=== PATIENT | female | born 1965 | race Two or more races ===

== ENCOUNTER 2021-02-22 21:16 | Inpatient (IN) | payer MEDICAID, OTHER ==
[~2021-02-22] VITALS: Ht 160 cm; Wt 62.6 kg
--- NOTE | 2021-02-22 21:20 | NUR ---
PT AAOX4. [id number] FROM HOME C/O SOB LOW O2 SAT 85% RA. COVID+ [id number]. PLACED IN BED 5 ON FIELD ADVISOR AND PULSE OX. ON 4L NC, PT SAT 94%. PT NOTED TACHY. NO ACUTE DISTRESS NOTED. IV LAC 20G, BLOOD WORK COLLECTED, SENT TO LAB. AWAITING OTHER ORDERS.
[2021-02-22 21:54] LABS: BASOPHILS % (AUTO) 0.3 % (0.0-2.0); EOSINOPHILS % (AUTO) 0.4 % (0.0-6.0); HEMATOCRIT 34 % (33-45); HEMOGLOBIN 11.4 g/dL (11.5-14.8); LYMPHOCYTES # (AUTO) 0.7 K/uL (0.8-4.8); LYMPHOCYTES % (AUTO) 5.7 % (20.0-44.0); MEAN CORPUSCULAR HGB CONC 34 g/dl (31.0-36.0); MEAN CORPUSCULAR VOLUME 86 fL (82-100); MONOCYTES # (AUTO) 0.5 K/uL (0.1-1.30); MONOCYTES % (AUTO) 4.3 % (2.0-12.0); NEUTROPHILS # (AUTO) 10.3 K/uL (1.8-8.9); NEUTROPHILS % (AUTO) 89.3 % (43.0-81.0); PLATELET COUNT (AUTO) 459 K/uL (150-450); RED BLOOD CELL COUNT(AUTO) 3.93 MIL/uL (4.0-5.2); WHITE BLOOD COUNT (AUTO) 11.5 K/uL (4.3-11.0)
--- NOTE | 2021-02-22 21:57 | NUR ---
SHWETAID SWABBED, SENT TO LAB.
--- NOTE | 2021-02-22 21:57 | NUR ---
AWAITING PT TO PROVIDE URINE SAMPLE
[2021-02-22 23:03] LABS: CREATINE KINASE, TOTAL 24 U/L (26-192); FERRITIN 489 ng/mL (8-388)
[2021-02-22 23:04] LABS: CALCIUM, SERUM 8.6 mg/dL (8.5-10.1); CARBON DIOXIDE 22 mmol/L (21-32); CHLORIDE 102 mmol/L (98-107); CREATININE 0.9 mg/dL (0.6-1.3); GLUCOSE 124 mg/dL (74-106); POTASSIUM 3.1 mmol/L (3.5-5.1); SODIUM SERUM 138 mmol/L (136-145); UREA NITROGEN, BLOOD 13 mg/dL (7-18)
[2021-02-22] MEDS ORDERED: AZITHROMYCIN 500 MG VIAL ONE (23:09)
[2021-02-22] MEDS ORDERED: CEFTRIAXONE 1GM BAG (ER ONLY) 50 ML IV ONE (23:09)
[2021-02-22 23:17] LABS: C-REACTIVE PROTEIN 46.4 mg/dL (0.0-0.9)
[2021-02-22 23:18] LABS: ALANINE AMINOTRANSFERASE 36 U/L (12-78); ALBUMIN 2.1 g/dL (3.4-5.0); ALKALINE PHOSPHATASE 127 U/L (46-116); ASPARTATE AMINOTRANSFERASE 28 U/L (15-37); BILIRUBIN,TOTAL 0.6 mg/dL (0.2-1.0); TOTAL PROTEIN, SERUM 7.1 g/dL (6.4-8.2)
[2021-02-22] MEDS ORDERED: AZITHROMYCIN 500 MG in IV D5W 250 ML IV ONE (23:30)
[2021-02-22] MEDS ORDERED: CEFTRIAXONE 1GM BAG (ER ONLY) 1 GM/50 ML PIGGYBACK IV ONE (23:30)
--- NOTE | 2021-02-22 23:43 | NUR ---
PT STATED SHE TAKES VITAMIN D AT HOME. NO OTHER MEDS.
[2021-02-22 23:49] LABS: D-DIMER 13.23 mg/L(FEU (0.17-0.50)
--- NOTE | 2021-02-22 23:50 | NUR ---
FIBRINOGEN 900
--- NOTE | 2021-02-23 01:05 | NUR ---
REPORT GIVEN TO LANG COLON FOR OBDULIO
--- NOTE | 2021-02-23 01:15 | NUR ---
BEFORE TRANSFERING THE PT, I DID NOTICE THE PT SAT 92% ON 4L NC. PT WAS PLACED ON 5L NC SAT 95-96%. I DID UPDATE LANG COLON. PT TRANSFERED PER ACLS PROTOCOL.
[2021-02-23] MEDS ORDERED: ZOLPIDEM TARTRATE 5 MG TABLET PO PRN (01:30)
[2021-02-23] MEDS ORDERED: Z GUARD REMEDY 2 OZ OINT TP PRN (01:30)
[2021-02-23] MEDS ORDERED: IV NS 0.9% 1,000 ML IV PRN (01:30)
[2021-02-23] MEDS ORDERED: ONDANSETRON HCL/PF 4 MG/2 ML VIAL IVP PRN (01:30)
[2021-02-23] MEDS ORDERED: POTASSIUM CHLORIDE 20 MEQ TAB.PRT.SR PO ONE (01:30)
[2021-02-23 01:40] VITALS: BP 127/87
--- NOTE | 2021-02-23 01:40 | NUR ---
ELECTROTYPE CASTER ADMITTING NOTE RECEIVED REPORT FROM ONEL CARRILLO RN. PATIENT TRANSFERRED TO [facility]. PATIENT A/OX4; ABLE TO MAKE NEEDS KNOWN. ON O2 5LPM VIA N/C; O2SAT 96%. RESPIRATIONS ARE LABORED, SOB UPON ACTIVITY EXERTION. PATIENT STATES SHE HAD FEVER 10 DAYS AGO. EXTERNAL BLOCKER POLISHING READS SINUS TACHY AT 129. INFORMED DR. RENTERIA WITH ORDERS TO CONTINUE MONITORING. LAC#20G S/L; PATENT AAMD INTACT. SKIN INTACT.ORIENTED PATIENT TO STAFF, ROOM, AND UNIT. PATIENT MAINTAINED ON CONTACT DROPLET PRECAUSIONSL; PATIENT VERBALIZED UNDERSTANDING. SAFETY MEASURES IN PLACE: BED IN LOWEST LOCKED POSITION, SIDE RAILS UPX2, CALL LIGHT WITHIN EASY REACH BED ALARMS ON. PATIENT IN STABLE CONDITION; WILL CONTINUE PLAN OF CARE.
--- NOTE | 2021-02-23 02:53 | NUR ---
WOODS MANAGER NOTE - TEMP PATIENT NOTED WITH BACK PAIN AND TEMP OF 99.7. APPLIED COOLING MEASURES AND ADMINISTERED TYLENOL ORDERED. WILL CONTINUE TO REASSESS FOR PAIN INI 30 MINUTES
[2021-02-23] MEDS: ACETAMINOPHEN 325 MG TABLET PO PRN ×2 (02:56→20:32)
[2021-02-23] MEDS ORDERED: IPRATROPIUM NEB FS 0.5 MG/2.5 ML AMPUL.NEB NEB SCH (03:30)
[2021-02-23] MEDS: HYDROCODONE/APAP 10/325MG TABLET PO PRN (04:54)
--- NOTE | 2021-02-23 04:54 | NUR ---
HEEL COVER SOFTENER NOTE - PAIN PATIENT C/O 03/27 ABD PAIN. ADMINISTERED NORCO 10-325 MG ORDERED. WILL CONTINUE TO REASSESS FOR PAIN IN 30 MINUTES.
[2021-02-23 06:00] VITALS: BP 170/78
[2021-02-23 06:36] LABS: BASOPHILS % (AUTO) 0.2 % (0.0-2.0); EOSINOPHILS % (AUTO) 0.2 % (0.0-6.0); HEMATOCRIT 33 % (33-45); HEMOGLOBIN 11.1 g/dL (11.5-14.8); LYMPHOCYTES # (AUTO) 0.5 K/uL (0.8-4.8); LYMPHOCYTES % (AUTO) 4.9 % (20.0-44.0); MEAN CORPUSCULAR HGB CONC 33 g/dl (31.0-36.0); MEAN CORPUSCULAR VOLUME 87 fL (82-100); MONOCYTES # (AUTO) 0.4 K/uL (0.1-1.30); MONOCYTES % (AUTO) 3.6 % (2.0-12.0); NEUTROPHILS # (AUTO) 9.4 K/uL (1.8-8.9); NEUTROPHILS % (AUTO) 91.1 % (43.0-81.0); PLATELET COUNT (AUTO) 405 K/uL (150-450); RED BLOOD CELL COUNT(AUTO) 3.83 MIL/uL (4.0-5.2); WHITE BLOOD COUNT (AUTO) 10.3 K/uL (4.3-11.0)
[2021-02-23 07:02] LABS: BILIRUBIN,TOTAL 0.6 mg/dL (0.2-1.0); CALCIUM, SERUM 8.3 mg/dL (8.5-10.1); CREATININE 0.8 mg/dL (0.6-1.3); MAGNESIUM 2.1 mg/dL (1.8-2.4); PHOSPHORUS 2.8 mg/dL (2.5-4.9); POTASSIUM 3.8 mmol/L (3.5-5.1)
--- NOTE | 2021-02-23 07:17 | NUR ---
RN GYN CLOSING NOTE PATIENT A/OX4; ABLE TO MAKE NEEDS KNOWN. ON O2 5LPM VIA N/C; O2SAT 96%. RESPIRATIONS ARE LABORED, SOB UPON ACTIVITY EXERTION. EXTERNAL BUSINESS TEST ANALYST READS SINUS TACHY AT 120. LAC#20G NS @ 75ML/HR; PATENT AND INTACT. SKIN INTACT. SAFETY MEASURES IN PLACE: BED IN LOWEST LOCKED POSITION, SIDE RAILS UPX2, CALL LIGHT WITHIN EASY REACH BED ALARMS ON. PATIENT IN STABLE CONDITION; WILL ENDORSE PLAN OF CARE.
[2021-02-23] MEDS: IPRATROPIUM/ALBUTEROL INHALER IH SCH ×4 (07:35→20:20)
[2021-02-23] MEDS ORDERED: ALBUTEROL FS 2.5 MG/3 ML VIAL.NEB NEB SCH (07:35)
--- NOTE | 2021-02-23 08:11 | NUR ---
TELE/RN OPENING NOTE RECEIVED PATIENT A/OX4; ABLE TO MAKE NEEDS KNOWN. ON O2 5LPM VIA N/C; O2SAT 96%. RESPIRATIONS ARE LABORED, SOB UPON ACTIVITY EXERTION. EXTERNAL CHECKER STOCKER READS SINUS TACHY AT 120. LAC#20G NS @ 75ML/HR; PATENT AND INTACT. SKIN INTACT. SAFETY MEASURES IN PLACE: BED IN LOWEST LOCKED POSITION, SIDE RAILS UPX2, CALL LIGHT WITHIN EASY REACH BED ALARMS ON. PATIENT IN STABLE CONDITION; WILL CONTINUE TO MONITOR PATIENT.
[2021-02-23] MEDS ORDERED: CHOL100062 PO (08:18)
[2021-02-23] MEDS ORDERED: FLUT16SP16 BNOSTRILS (08:18)
[2021-02-23] MEDS ORDERED: ALBU2.5V38 INH (08:18)
[2021-02-23] MEDS ORDERED: IBUP-1955 PO (08:18)
[2021-02-23] MEDS: PANTOPRAZOLE 40 MG TABLET.DR PO SCH (08:43)
[2021-02-23] MEDS ORDERED: DEXAMETHASONE SOD PHOSPHATE 10 MG/ML VIAL IV SCH (09:00)
[2021-02-23] MEDS ORDERED: ENOXAPARIN SODIUM 40 MG/0.4 ML DISP.SYRIN SQ SCH (09:00)
[2021-02-23] MEDS: RIVAROXABAN 10 MG TABLET PO SCH (11:43)
[2021-02-23] MEDS: REMDESIVIR (CHARGED) 200 MG, *LOADING DOSE 1 EA in IV NS 0.9% 210 ML IV ONE ×2 (15:00→16:23)
--- NOTE | 2021-02-23 16:43 | NUR ---
TELE/RN NOTES- REFUSED REMDESIVIR IV PATIENT WANTS TO HOLD OFF ON THE REMDESIVIR IV, PER PATIENT SHE WILL TALK TO HER PCP FIRST BEFORE SHE DECIDES. FREDDIE LUIS NOTIFIED. Addendum: 02/23/21 at 1933 by EDILBERTO HASTINGS RN ERROR. SEE ABOVE NOTES
--- NOTE | 2021-02-23 19:34 | NUR ---
TELE/RN CLOSING NOTE PATIENT A/OX4; ABLE TO MAKE NEEDS KNOWN. ON O2 5LPM VIA N/C; O2SAT 95%. RESPIRATIONS ARE UNLABORED. EXTERNAL BOARD CERTIFIED MUSIC THERAPIST READS SINUS TACHY AT 110. LAC#20G NS @ 75ML/HR; PATENT AND INTACT. SKIN INTACT. SAFETY MEASURES IN PLACE: BED IN LOWEST LOCKED POSITION, SIDE RAILS UPX2, CALL LIGHT WITHIN EASY REACH BED ALARMS ON. PATIENT IN STABLE CONDITION; WILL ENDORSE TO THE NEXT SHIFT FOR OBDULIO
--- NOTE | 2021-02-23 19:34 | NUR ---
TELE/RN NOTES- REFUSED REMDESIVIR IV PATIENT WANTS TO HOLD OFF ON THE REMDESIVIR IV, PER PATIENT SHE WILL TALK TO HER PCP FIRST BEFORE SHE DECIDES. DR. CALZADA NOTIFIED.
[2021-02-23 20:00] VITALS: BP 120/63
[2021-02-23] MEDS: CEFTRIAXONE 1 G in IV D5W 50 ML IV SCH (20:06)
[2021-02-23] MEDS: AZITHROMYCIN 500 MG in IV D5W 250 ML IV SCH (20:44)
--- NOTE | 2021-02-23 22:00 | NUR ---
RN NOTES, PATIENT REFUSED REMDESIVIR IV MEDICATION EARLIER WITH DAY SHIFT NURSE, AND REMAINED ME THAT SHE IS NOT GOING TO TAKE THAT MEDICATION, STATED THAT SHE WANT TO TALK TO DOCTOR, AND REQUESTING REGENERON MEDICATION FOR COVID, INFORMED MYRA DOCK SUPERVISOR AND HE REPLIED THAT WE DON'T HAVE THAT MEDICATION AVAILABLE IN THIS HOSPITAL, INFORMED PATIENT AND SHE STILL REQUESTING THAT MEDICATION, WILL FOLLOW UP IN AM, SHE IS REQUESTING SEE DOCTOR IN AM, WILL ENDORSED TO DAY SHIFT NURSE.
[2021-02-24] VITALS: BP 141/67
[2021-02-24 04:00] VITALS: BP 139/84
--- NOTE | 2021-02-24 06:46 | NUR ---
RN NOTE, PATIENT ALERT ORIENTED X, ON 5-6L OXYGEN VIA NASAL CANNULA, WITH O2 SAT LEVEL> 92, REMAINED STABLE DURING THE NIGHT, NSR IN TELE MONITRO WITH HR 70-90S DURING THE NIGHT, CALL LIGHT W/I REACH, S/R OF BED UPX2, WILL ENDORSE CONTINUATION OF CARE TO ONCOMING NURSE.
[2021-02-24 07:13] LABS: BASOPHILS % (AUTO) 0.2 % (0.0-2.0); HEMATOCRIT 36 % (33-45); HEMOGLOBIN 12.1 g/dL (11.5-14.8); LYMPHOCYTES # (AUTO) 0.7 K/uL (0.8-4.8); LYMPHOCYTES % (AUTO) 6.7 % (20.0-44.0); MEAN CORPUSCULAR HGB CONC 33 g/dl (31.0-36.0); MEAN CORPUSCULAR VOLUME 86 fL (82-100); MONOCYTES # (AUTO) 0.7 K/uL (0.1-1.30); MONOCYTES % (AUTO) 7.3 % (2.0-12.0); NEUTROPHILS # (AUTO) 8.8 K/uL (1.8-8.9); NEUTROPHILS % (AUTO) 85.8 % (43.0-81.0); PLATELET COUNT (AUTO) 408 K/uL (150-450); RED BLOOD CELL COUNT(AUTO) 4.19 MIL/uL (4.0-5.2); WHITE BLOOD COUNT (AUTO) 10.3 K/uL (4.3-11.0)
[2021-02-24] MEDS ORDERED: DEXAMETHASONE 4 MG TABLET PO SCH ×2 (07:30→09:00)
[2021-02-24] MEDS: IPRATROPIUM/ALBUTEROL INHALER IH SCH ×4 (07:45→20:09)
--- NOTE | 2021-02-24 07:58 | NUR ---
ENVIRONMENTAL HEALTH AIDE OPENING NOTES RECEIVED PATIENT IN BED, AWAKE, A/O X4. PATIENT ON OXYGEN THERAPY VIA NC AT 6 LMP; BREATHING EVEN AND UNLABORED AT THIS TIME. NO COMPLAINS OF PAIN. IV ACCESS ON LAC G # 20 PRESENT AND INTACT; SL. SAFETY PRECAUTIONS IN PLACE; BED IN LOW POSITION AND LOCKED, RAILS UP X2, CALL LIGHT WITHIN REACH. WILL CONTINUE TO MONITOR PATIENT.
[2021-02-24] MEDS: PANTOPRAZOLE 40 MG TABLET.DR PO SCH (08:08)
[2021-02-24] MEDS: DEXAMETHASONE 4 MG TABLET PO SCH ×2 (08:08→09:00)
[2021-02-24 08:15] LABS: ALBUMIN 2.1 g/dL (3.4-5.0); BILIRUBIN,DIRECT 0.1 mg/dL (0.0-0.2); BILIRUBIN,TOTAL 0.3 mg/dL (0.2-1.0); CALCIUM, SERUM 9.1 mg/dL (8.5-10.1); CREATININE 0.8 mg/dL (0.6-1.3); MAGNESIUM 2.7 mg/dL (1.8-2.4); PHOSPHORUS 2.5 mg/dL (2.5-4.9); POTASSIUM 4.3 mmol/L (3.5-5.1); TOTAL PROTEIN, SERUM 7.7 g/dL (6.4-8.2)
--- NOTE | 2021-02-24 09:32 | NUR ---
WALL WORKER NOTES 0900 DEXAMETHASONE DOSE NON-ADMINISTERED SINCE THE PATIENT RECEIVED A DOSE THIS AM ALREADY. PER MD IT IS SUPPOSED TO BE DAILY AND THIS NEW ORDER TO START TOMORROW.
[2021-02-24] MEDS ORDERED: REMDESIVIR (CHARGED) 100 MG in IV NS 0.9% 230 ML IV SCH (15:00)
[2021-02-24] MEDS: REMDESIVIR (CHARGED) 100 MG in IV NS 0.9% 100 ML IV SCH (16:08)
[2021-02-24] MEDS: RIVAROXABAN 10 MG TABLET PO SCH (16:34)
--- NOTE | 2021-02-24 18:44 | NUR ---
COSMETICS PRESSER CLOSING NOTES PATIENT REMAINS IN BED, AWAKE, A/O X4. PATIENT ON OXYGEN THERAPY VIA NC AT 6 LMP; BREATHING EVEN AND UNLABORED AT THIS TIME. NO COMPLAINS OF PAIN DURING THE DAY. IV ACCESS ON LAC G # 20 PRESENT AND INTACT; SL. ALL NEEDS ATTENDED DURING THE DAY. SAFETY PRECAUTIONS IN PLACE; BED IN LOW POSITION AND LOCKED, RAILS UP X2, CALL LIGHT WITHIN REACH. WILL ENDORSE TO FABRICATOR SPECIAL ITEMS NURSE.
[2021-02-24] MEDS: HYDROCODONE/APAP 10/325MG TABLET PO PRN (19:56)
[2021-02-24 20:00] VITALS: BP 153/90
[2021-02-24] MEDS: ACETAMINOPHEN 325 MG TABLET PO PRN (20:13)
[2021-02-24] MEDS: CEFTRIAXONE 1 G in IV D5W 50 ML IV SCH (20:14)
[2021-02-24] MEDS: AZITHROMYCIN 500 MG in IV D5W 250 ML IV SCH (21:07)
--- NOTE | 2021-02-24 23:10 | NUR ---
RN NOTES, PATIENT NOTED WITH HR LOWEST 40 AT THIS TIME, DENIES ANY CHEST PAIN OR DISCOMFORT, INFORMED DR LUGO AUTO DAMAGE APPRAISER AND HE REPLIED WITH ORDER TO CONT MONITOR FOR NOW, NOTED AND CARRIED OUT. Addendum: 02/25/21 at 1444 by JULIENNE MCQUEEN RN WRONG ENTRY
[2021-02-25] VITALS: BP 127/89
[2021-02-25 04:00] VITALS: BP 132/82
[2021-02-25 06:56] LABS: BASOPHILS % (AUTO) 0.2 % (0.0-2.0); HEMATOCRIT 35 % (33-45); HEMOGLOBIN 11.6 g/dL (11.5-14.8); LYMPHOCYTES # (AUTO) 1.2 K/uL (0.8-4.8); LYMPHOCYTES % (AUTO) 6.9 % (20.0-44.0); MEAN CORPUSCULAR HGB CONC 33 g/dl (31.0-36.0); MEAN CORPUSCULAR VOLUME 86 fL (82-100); MONOCYTES # (AUTO) 0.8 K/uL (0.1-1.30); MONOCYTES % (AUTO) 4.7 % (2.0-12.0); NEUTROPHILS # (AUTO) 14.9 K/uL (1.8-8.9); NEUTROPHILS % (AUTO) 88.2 % (43.0-81.0); PLATELET COUNT (AUTO) 429 K/uL (150-450); RED BLOOD CELL COUNT(AUTO) 4.07 MIL/uL (4.0-5.2); WHITE BLOOD COUNT (AUTO) 16.9 K/uL (4.3-11.0)
[2021-02-25 07:20] LABS: ALBUMIN 2.2 g/dL (3.4-5.0); BILIRUBIN,DIRECT 0.1 mg/dL (0.0-0.2); BILIRUBIN,TOTAL 0.3 mg/dL (0.2-1.0); CALCIUM, SERUM 8.7 mg/dL (8.5-10.1); CREATININE 0.8 mg/dL (0.6-1.3); POTASSIUM 3.7 mmol/L (3.5-5.1); TOTAL PROTEIN, SERUM 7.5 g/dL (6.4-8.2)
[2021-02-25 08:00] VITALS: BP 136/82
--- NOTE | 2021-02-25 08:00 | NUR ---
NOTED PATIENT WITH LOW 02 SAT LEVEL LOW 80S AT THIS TIME, RT AT BEDSIDE, NO DISTRESS NOTED AT THIS TIME.
[2021-02-25] MEDS: IPRATROPIUM/ALBUTEROL INHALER IH SCH ×4 (08:11→19:55)
[2021-02-25] MEDS: PANTOPRAZOLE 40 MG TABLET.DR PO SCH (08:13)
[2021-02-25] MEDS: DEXAMETHASONE 4 MG TABLET PO SCH (08:34)
--- NOTE | 2021-02-25 09:00 | NUR ---
RN NOTES, DR RODRÍGUEZ AT BEDSIDE ASSESSED PATIENT AND ORDERED HIGH FLOW OXYGEN, RN CARRYING ORDERS.
--- NOTE | 2021-02-25 09:10 | NUR ---
RN NOTES PATIENT ASSESSED BY DR CARVAJAL ADULT CARE MANAGER AT THIS TIME, PATIENT IN HIGH FLOW 40L 100% FIO2, NO DISTRESS NOTED WITH O2 SAT LEVEL 95%..
[2021-02-25] MEDS ORDERED: TOCILIZUMAB 400 MG in IV NS 0.9% 80 ML IV ONE (10:00)
--- NOTE | 2021-02-25 10:14 | NUR ---
patient want to discuss with daughter about actemra ,dr. connors explained the importance of it and also need to be in icu to have this meds given,pt. still refused .nursing sup made aware.
--- NOTE | 2021-02-25 11:11 | NUR ---
primary nurse talked again to patient regarding actemra still undecided, aware,pharmacy aware.
[2021-02-25] MEDS: REMDESIVIR (CHARGED) 100 MG in IV NS 0.9% 100 ML IV SCH (15:49)
[2021-02-25 16:00] VITALS: BP 134/80
[2021-02-25] MEDS: RIVAROXABAN 10 MG TABLET PO SCH (16:55)
--- NOTE | 2021-02-25 17:18 | NUR ---
RN NOTES, PATIENT IN STABLE CONDITION NO SOB/ACUTE DISTRESS CONT ON HF 40L 100%FIO2, ENDORSED TO OTF COLON FOR CONTINUATION OF CARE.
--- NOTE | 2021-02-25 19:01 | NUR ---
RN NOTE PATIENT OBSERVED IN BED AWAKE, ALERT AND ORIENTED X4, RECEIVED ENDORSEMENT FROM DARLENE ENRIQUE AT 1700, PATIENT ON HF WITH 40 LPM AND 100% FIO2, O2 SAT OF 96%, BREATHING EVEN AND UNLABORED, BED WHEELS LOCK, CALL LIGHT WITHIN REACH DUE MEDICATION GIVEN ORDERED, CALL LIGHT WITHIN REACH, WILL ENDORSE TO NOC SHIFT.
[2021-02-25 20:00] VITALS: BP 149/92
--- NOTE | 2021-02-25 20:00 | NUR ---
RN NOTE PATIENT IN BED AWAKE, ALERT AND ORIENTED X4. PATIENT ON HF WITH 40 LPM AND 100% FIO2, O2 SAT OF 96%, BREATHING EVEN AND UNLABORED, NO SIGNS OF RESPIRATORY DISTRESS. IV ACCESS ON LEFT AC # 20, PATENT AND INTACT. BED LOCKED AND IN LOWEST POSITION. CALL LIGHT WITHIN REACH. ALL NEEDS ANTICIPATED.
[2021-02-25] MEDS: AZITHROMYCIN 500 MG in IV D5W 250 ML IV SCH (20:32)
[2021-02-25] MEDS: CEFTRIAXONE 1 G in IV D5W 50 ML IV SCH (22:13)
[2021-02-26] VITALS: BP 134/79
[2021-02-26 04:00] VITALS: BP 149/92
--- NOTE | 2021-02-26 06:59 | NUR ---
RN NOTE PATIENT ALERT AND ORIENTED X4. ON HF WITH 40 LPM AND 100% FIO2, O2 SAT OF 94%, BREATHING EVEN AND UNLABORED, NO SIGNS OF RESPIRATORY DISTRESS. IV ACCESS ON LEFT AC # 20, PATENT AND INTACT. ALL DUE MEDS GIVEN ORDERED. BED LOCKED AND IN LOWEST POSITION. CALL LIGHT WITHIN REACH. WILL ENDORSE TO AM SHIFT.
[2021-02-26 07:05] LABS: BASOPHILS % (AUTO) 0.1 % (0.0-2.0); EOSINOPHILS % (AUTO) 0.2 % (0.0-6.0); HEMATOCRIT 35 % (33-45); HEMOGLOBIN 11.8 g/dL (11.5-14.8); LYMPHOCYTES # (AUTO) 1.4 K/uL (0.8-4.8); LYMPHOCYTES % (AUTO) 11.7 % (20.0-44.0); MEAN CORPUSCULAR HGB CONC 34 g/dl (31.0-36.0); MEAN CORPUSCULAR VOLUME 86 fL (82-100); MONOCYTES # (AUTO) 0.7 K/uL (0.1-1.30); MONOCYTES % (AUTO) 5.7 % (2.0-12.0); NEUTROPHILS # (AUTO) 10.2 K/uL (1.8-8.9); NEUTROPHILS % (AUTO) 82.3 % (43.0-81.0); PLATELET COUNT (AUTO) 366 K/uL (150-450); RED BLOOD CELL COUNT(AUTO) 4.12 MIL/uL (4.0-5.2); WHITE BLOOD COUNT (AUTO) 12.4 K/uL (4.3-11.0)
--- NOTE | 2021-02-26 07:45 | NUR ---
RN OPENING NOTES RECEIVED PATIENT IN BED AWAKE, ALERT AND ORIENTED X4. PATIENT ON HF WITH 40 LPM AND 100% FIO2, O2 SAT OF 97%, BREATHING EVEN AND UNLABORED, NOT IN ANY FORM OF ACUTE DISTRESS NOTED. NO COMPLAINTS OF PAIN AT THIS TIME. IV ACCESS SAFETY PRECAUTIONS IN PLACE: BED IN LOWEST LOCKED POSITION, SIDE RAILS UP X 2, CALL LIGHT WITHIN REACH. WILL CONTINUE TO MONITOR ACCORDINGLY.
[2021-02-26 07:47] LABS: ALBUMIN 2.1 g/dL (3.4-5.0); BILIRUBIN,TOTAL 0.4 mg/dL (0.2-1.0); CALCIUM, SERUM 8.3 mg/dL (8.5-10.1); CREATININE 0.8 mg/dL (0.6-1.3); POTASSIUM 3.3 mmol/L (3.5-5.1); TOTAL PROTEIN, SERUM 6.7 g/dL (6.4-8.2)
[2021-02-26 07:49] LABS: ALBUMIN 2.1 g/dL (3.4-5.0); BILIRUBIN,DIRECT 0.1 mg/dL (0.0-0.2); BILIRUBIN,TOTAL 0.4 mg/dL (0.2-1.0); TOTAL PROTEIN, SERUM 6.7 g/dL (6.4-8.2)
[2021-02-26 07:55] LABS: C-REACTIVE PROTEIN 6.3 mg/dL (0.0-0.9)
[2021-02-26] MEDS: IPRATROPIUM/ALBUTEROL INHALER IH SCH ×4 (08:02→20:10)
[2021-02-26] MEDS: PANTOPRAZOLE 40 MG TABLET.DR PO SCH (08:24)
[2021-02-26] MEDS: DEXAMETHASONE 4 MG TABLET PO SCH (08:33)
[2021-02-26 09:00] VITALS: BP 136/66
[2021-02-26] MEDS: ENSURE ENLIVE 237 ML LIQUID (VANILLA) PO SCH ×2 (10:00→17:39)
[2021-02-26] MEDS ORDERED: POTASSIUM CHLORIDE 20 MEQ TAB.PRT.SR PO SCH (10:30)
[2021-02-26 12:00] VITALS: BP 140/73
[2021-02-26] MEDS: ACETAMINOPHEN 325 MG TABLET PO PRN (14:57)
[2021-02-26] MEDS: REMDESIVIR (CHARGED) 100 MG in IV NS 0.9% 100 ML IV SCH (16:08)
[2021-02-26] MEDS: RIVAROXABAN 10 MG TABLET PO SCH (17:02)
[2021-02-26 18:00] VITALS: BP 121/71
--- NOTE | 2021-02-26 18:46 | NUR ---
HEAD START DIRECTOR CLOSING NOTES PATIENT IN BED AWAKE, ALERT AND ORIENTED X4. PATIENT ON HF WITH 40 LPM AND 90% FIO2, O2 SAT OF 97%, BREATHING EVEN AND UNLABORED, NOT IN ANY FORM OF ACUTE DISTRESS NOTED. NO COMPLAINTS OF PAIN AT THIS TIME. IV ACCESS SAFETY PRECAUTIONS IN PLACE: BED IN LOWEST LOCKED POSITION, SIDE RAILS UP X 2, CALL LIGHT WITHIN REACH. ALL NEEDS ATTENDED. WILL ENDORSE TO ONCOMING SHIFT FOR OBDULIO.
[2021-02-26 20:00] VITALS: BP 115/64
--- NOTE | 2021-02-26 20:10 | NUR ---
RT 1 puff administered
[2021-02-26] MEDS: AZITHROMYCIN 500 MG in IV D5W 250 ML IV SCH (21:19)
[2021-02-26] MEDS: CEFTRIAXONE 1 G in IV D5W 50 ML IV SCH (21:19)
[2021-02-27] VITALS: BP 134/75
--- NOTE | 2021-02-27 03:25 | NUR ---
RN notes Alert and oriented, able to communicate needs verbally. Ambulatory with assist. On High flow 100% oxygenation,40%Fi02 tolerating well. No complaint of pain or discomfort. No significant change of condition. Vital signs within normal limits. Kept clean and dry. Will endorse to next shift for continuity of care.
[2021-02-27 04:00] VITALS: BP 132/67
--- NOTE | 2021-02-27 07:20 | NUR ---
HUMAN RESOURCE ANALYST NOTES PATIENT IN BED RESTING. AWAKE, ALERT AND ORIENTED X4, ABLE TO MAKE NEEDS KNOWN. BREATHING EVEN AND UNLABORED, CURRENTLY ON HIGHFLOW O2 WITH 40 LPM AND 90% FIO2, O2 SAT OF 95%, NOT IN DISTRESS. IV ACCESS INTACT AND PATENT. ON CARDIAC MONITORING, READING OF SR, NO CARDIAC DISTRESS NOTED. SEEN EATING BREAKFAST. SAFETY PRECAUTIONS IN PLACE: BED IN LOWEST LOCKED POSITION, SIDE RAILS UP X 2, CALL LIGHT WITHIN REACH. WILL CONTINUE TO MONITOR.
[2021-02-27 07:29] LABS: BASOPHILS % (AUTO) 0.3 % (0.0-2.0); EOSINOPHILS % (AUTO) 0.4 % (0.0-6.0); HEMATOCRIT 33 % (33-45); HEMOGLOBIN 10.9 g/dL (11.5-14.8); LYMPHOCYTES # (AUTO) 1.7 K/uL (0.8-4.8); LYMPHOCYTES % (AUTO) 13.2 % (20.0-44.0); MEAN CORPUSCULAR HGB CONC 33 g/dl (31.0-36.0); MEAN CORPUSCULAR VOLUME 86 fL (82-100); MONOCYTES # (AUTO) 0.8 K/uL (0.1-1.30); MONOCYTES % (AUTO) 6.7 % (2.0-12.0); NEUTROPHILS # (AUTO) 10.1 K/uL (1.8-8.9); NEUTROPHILS % (AUTO) 79.4 % (43.0-81.0); PLATELET COUNT (AUTO) 321 K/uL (150-450); RED BLOOD CELL COUNT(AUTO) 3.78 MIL/uL (4.0-5.2); WHITE BLOOD COUNT (AUTO) 12.7 K/uL (4.3-11.0)
[2021-02-27 07:43] LABS: BILIRUBIN,DIRECT 0.1 mg/dL (0.0-0.2); BILIRUBIN,TOTAL 0.4 mg/dL (0.2-1.0); CALCIUM, SERUM 8.1 mg/dL (8.5-10.1); CREATININE 0.7 mg/dL (0.6-1.3); POTASSIUM 3.3 mmol/L (3.5-5.1); TOTAL PROTEIN, SERUM 6.2 g/dL (6.4-8.2)
[2021-02-27] MEDS: PANTOPRAZOLE 40 MG TABLET.DR PO SCH (07:49)
[2021-02-27 08:00] VITALS: BP 140/69
[2021-02-27] MEDS: IPRATROPIUM/ALBUTEROL INHALER IH SCH ×4 (08:11→19:23)
[2021-02-27] MEDS: DEXAMETHASONE 4 MG TABLET PO SCH (08:49)
[2021-02-27] MEDS: ENSURE ENLIVE 237 ML LIQUID (VANILLA) PO SCH ×2 (08:49→16:09)
[2021-02-27] MEDS: ACETAMINOPHEN 325 MG TABLET PO PRN ×2 (09:43→15:43)
[2021-02-27] MEDS ORDERED: POTASSIUM CHLORIDE 20 MEQ TAB.PRT.SR PO ONE (10:00)
[2021-02-27 10:03] LABS: LYMPHOCYTES % (MANUAL) 12 % (16-48); MONOCYTES % (MANUAL) 6 % (0-11.0); MYELOCYTES % 1 % (0-0); NEUTROPHILS % (MANUAL) 81 (42-76)
[2021-02-27 12:00] VITALS: BP 119/48
--- NOTE | 2021-02-27 15:55 | NUR ---
RN NOTES CALLED PHARMACY FOR REMDESIVIR DOSE. WILL SEND TO UNIT ONCE CONSTITUTED.
[2021-02-27 16:00] VITALS: BP 118/77
[2021-02-27] MEDS: REMDESIVIR (CHARGED) 100 MG in IV NS 0.9% 100 ML IV SCH (16:17)
[2021-02-27] MEDS: RIVAROXABAN 10 MG TABLET PO SCH (16:18)
--- NOTE | 2021-02-27 19:15 | NUR ---
RN NOTES PATIENT RESTING IN BED, ASSISTED W/ NEEDS DURING THE DAY AND RENDERED DUE MEDS. CONTINUES ON HIGH FLOW O2, DECREASED TO 70% PER RT, NO RESPIRATORY DISTRESS. SAFETY MEASURES MAINTAINED. ENDORSED TO GYM TEACHER RN FOR OBDULIO.
[2021-02-27 20:00] VITALS: BP 115/59
[2021-02-27] MEDS: AZITHROMYCIN 500 MG in IV D5W 250 ML IV SCH (21:38)
[2021-02-27] MEDS: CEFTRIAXONE 1 G in IV D5W 50 ML IV SCH (21:38)
[2021-02-28] VITALS: BP 138/75
[2021-02-28 04:00] VITALS: BP 129/76
--- NOTE | 2021-02-28 05:15 | NUR ---
RN notes Resting comfortably in bed with no distress noted, Breathing even and unlabored. Alert and oriented, ambulatory with assist. Verbally able to communicate needs. On O2 at 70% via high flow nasal cannula. No complaint of pain or discomfort. Kept clean and dry. Will endorse to next shift for continuity of care.
[2021-02-28 06:37] LABS: BASOPHILS # (AUTO) 0.1 K/uL (0.0-0.2); BASOPHILS % (AUTO) 0.3 % (0.0-2.0); EOSINOPHILS % (AUTO) 0.6 % (0.0-6.0); HEMATOCRIT 34 % (33-45); HEMOGLOBIN 11.4 g/dL (11.5-14.8); LYMPHOCYTES # (AUTO) 1.9 K/uL (0.8-4.8); LYMPHOCYTES % (AUTO) 11.7 % (20.0-44.0); MEAN CORPUSCULAR HGB CONC 33 g/dl (31.0-36.0); MEAN CORPUSCULAR VOLUME 86 fL (82-100); MONOCYTES # (AUTO) 0.9 K/uL (0.1-1.30); MONOCYTES % (AUTO) 5.7 % (2.0-12.0); NEUTROPHILS # (AUTO) 13.4 K/uL (1.8-8.9); NEUTROPHILS % (AUTO) 81.7 % (43.0-81.0); PLATELET COUNT (AUTO) 378 K/uL (150-450); WHITE BLOOD COUNT (AUTO) 16.4 K/uL (4.3-11.0)
[2021-02-28 06:45] LABS: CREATININE 0.7 mg/dL (0.6-1.3); POTASSIUM 3.6 mmol/L (3.5-5.1)
[2021-02-28 06:47] LABS: C-REACTIVE PROTEIN 3.6 mg/dL (0.0-0.9)
[2021-02-28] MEDS: IPRATROPIUM/ALBUTEROL INHALER IH SCH ×4 (07:37→19:35)
--- NOTE | 2021-02-28 07:46 | NUR ---
MARINE EQUIPMENT PRESERVATION INSPECTOR OPENING NOTES RECEIVED PATIENT IN BED, AWAKE, A/O X4. PATIENT ON HIGH FLOW AT 40 LPM WITH 50%; BREATHING EVEN AND UNLABORED, NO SOB PRESENT AT THIS TIME; RT AT BEDSIDE. TELE MONITOR WITH A CURRENT READING OF SR 75. NO COMPLAINS OF PAIN. IV ACCESS ON R HAND G #22, SL PRESENT AND INTACT. SAFETY PRECAUTIONS IN PLACE; BED IN LOW POSITION AND LOCKED, RAILS UP X2, CALL LIGHT WITHIN REACH. WILL CONTINUE TO MONITOR PATIENT.
[2021-02-28] MEDS: DEXAMETHASONE 4 MG TABLET PO SCH (08:45)
[2021-02-28] MEDS: ENSURE ENLIVE 237 ML LIQUID (VANILLA) PO SCH ×2 (08:46→16:18)
[2021-02-28] MEDS: PANTOPRAZOLE 40 MG TABLET.DR PO SCH (08:46)
[2021-02-28 09:20] VITALS: BP 91/53
[2021-02-28 12:10] VITALS: BP 125/69
[2021-02-28] MEDS: RIVAROXABAN 10 MG TABLET PO SCH (16:21)
[2021-02-28 17:14] VITALS: BP 119/69
--- NOTE | 2021-02-28 18:52 | NUR ---
SOIL SORT WORKER CLOSING NOTES PATIENT IN BED, AWAKE, A/O X4. PATIENT ON HIGH FLOW AT 30 LPM WITH 50%; BREATHING EVEN AND UNLABORED, NO SOB PRESENT AT THIS TIME. TELE MONITOR WITH A CURRENT READING OF SR 95. NO COMPLAINS OF PAIN. IV ACCESS ON R HAND G #22, SL PRESENT AND INTACT. ALL NEEDS ATTENDED DURING THE DAY. SAFETY PRECAUTIONS IN PLACE; BED IN LOW POSITION AND LOCKED, RAILS UP X2, CALL LIGHT WITHIN REACH. WILL ENDORSE TO SHIFT STACKER NURSE.
--- NOTE | 2021-02-28 19:15 | NUR ---
RN OPENING NOTES PATIENT IN BED, IN PRONE POSITION. PATIENT SATTING AT 95% WITH 30 LPM HIGH FLOW 50%. PATIENT A/O X 4, ABLE TO MAKE NEEDS KNOWN.PATIENT HAS A LHAND 22 G PATENT AND INTACT, FLUSHING WELL AND SALINE LOCKED. SAFETY MEASURES IN PLACE: BED LOCKED AND IN LOWEST POSITION, CALL LIGHT WITHIN REACH, SIDE RAILS UP, ISOLATION PRECAUTION,, IMPLEMENTED. WILL MONITOR PATIENT CLOSELY.
[2021-02-28 20:00] VITALS: BP 110/63
--- NOTE | 2021-02-28 23:57 | NUR ---
RN NOTE R HAND IV ACCESS ACCIDENTALLY REMOVED, PATIENT REFUSES IV INSERTION AT THIS TIME. PATIENT STATES THAT SHE WILL HAVE ONE INSERTED IF SHE NEEDS TO HAVE "INTRAVENOUS MEDICATIONS". RISK AND BENEFITS EXPLAINED. WILL TRY AGAIN AT A LATER TIME.
[2021-03-01] VITALS: BP 114/64
[2021-03-01 04:00] VITALS: BP 124/58
--- NOTE | 2021-03-01 05:50 | NUR ---
RN NOTE RT ROSA TITRATED O2 TO 20 LPM HIGH FLOW 50%, PATIENT SATTING 94% AT THIS TIME, WILL CONTINUE TO MONITOR PATIENT.
--- NOTE | 2021-03-01 06:36 | NUR ---
RN CLOSING NOTE PATIENT OBSERVED IN BED IN PRONE POSITION. PATIENT HAS EYES CLOSED, EASILY AWAKENED. A/O X 4. PATIENT TOLERATING 20 LPM HIGH FLOW 50%, 93-94% O2 SATURATION. PATIENT IS ABLE TO MAKE NEEDS KNOWN. MAINTAINED ISOLATION PRECAUTIONS DURING THE SHIFT. TELE MONITOR READS 84 BPM SR. ALL NEEDS MET AND ATTENDED, ALL ORDERS CARRIED OUT. RE-EDUCATED PATIENT ON HAVING IV ACCESS, PATIENT REFUSES AT THIS TIME. SAFETY MEASURES IN PLACE. WILL ENDORSE TO DAY SHIFT NURSE FOR OBDULIO.
--- NOTE | 2021-03-01 07:22 | NUR ---
RN NOTE PATIENT IS IN BED PRONE. PATIENT IS ON HF 20LPM AT 50%. PATIENT IS AOX4. BED IS LOCKED IN THE LOWEST POSITION, 3 GUARD RAILS RAISED, CALL HOPPER WITHIN REACH, AND ALL HOSPITAL SAFETY PRECAUTIONS ARE BEING FOLLOWED. WILL CONTINUE TO MONITOR THROUGHOUT SHIFT.
[2021-03-01 08:00] VITALS: BP 118/59
[2021-03-01] MEDS: IPRATROPIUM/ALBUTEROL INHALER IH SCH ×4 (08:04→20:14)
[2021-03-01] MEDS: PANTOPRAZOLE 40 MG TABLET.DR PO SCH (09:13)
[2021-03-01] MEDS: DEXAMETHASONE 4 MG TABLET PO SCH (09:14)
[2021-03-01] MEDS: ENSURE ENLIVE 237 ML LIQUID (VANILLA) PO SCH ×2 (09:14→17:34)
[2021-03-01 12:00] VITALS: BP 133/89
[2021-03-01 16:00] VITALS: BP 142/83
[2021-03-01] MEDS: RIVAROXABAN 10 MG TABLET PO SCH (16:12)
--- NOTE | 2021-03-01 18:43 | NUR ---
RN NOTE PATIENT IS IN BED PRONE. PATIENT IS ON 6L NC WITH NO SIGNS OF LABORED BREATHING. PATIENT IS AOX4. BED IS LOCKED IN THE LOWEST POSITION, 3 GUARD RAILS RAISED, CALL HOPPER WITHIN REACH, AND ALL HOSPITAL SAFETY PRECAUTIONS ARE BEING FOLLOWED. ALL DUE MEDS GIVEN AND PATIENT REMAINED STABLE THROUGHOUT SHIFT. WILL ENDORSE TO DELIVERY ENGINEER RN.
--- NOTE | 2021-03-01 19:20 | NUR ---
RN NOTE PATIENT IS IN BED A/Ox4, ON 6L NC WITH NO SOB/ACUTE DISTRESS NOTED, S/P HIGH FLOW, TOLERATED NC WELL WITH O2 SAT >94%, PRONING ANGELIC, CALL HOPPER WITHIN REACH, ALL SAFETY PRECAUTIONS, WILL CONTINUE TO MONITOR CLOSELY.
[2021-03-01 20:00] VITALS: BP 134/77
--- NOTE | 2021-03-01 20:15 | NUR ---
RT 1 puff administered
[2021-03-02] VITALS: BP 135/86
[2021-03-02 04:00] VITALS: BP 131/83
[2021-03-02 06:40] LABS: BASOPHILS # (AUTO) 0.1 K/uL (0.0-0.2); BASOPHILS % (AUTO) 0.7 % (0.0-2.0); EOSINOPHILS % (AUTO) 0.8 % (0.0-6.0); HEMATOCRIT 34 % (33-45); HEMOGLOBIN 11.1 g/dL (11.5-14.8); LYMPHOCYTES # (AUTO) 2.6 K/uL (0.8-4.8); LYMPHOCYTES % (AUTO) 13.3 % (20.0-44.0); MEAN CORPUSCULAR HGB CONC 33 g/dl (31.0-36.0); MEAN CORPUSCULAR VOLUME 87 fL (82-100); MONOCYTES # (AUTO) 1.5 K/uL (0.1-1.30); MONOCYTES % (AUTO) 7.9 % (2.0-12.0); NEUTROPHILS # (AUTO) 15.2 K/uL (1.8-8.9); NEUTROPHILS % (AUTO) 77.3 % (43.0-81.0); PLATELET COUNT (AUTO) 419 K/uL (150-450); RED BLOOD CELL COUNT(AUTO) 3.89 MIL/uL (4.0-5.2); WHITE BLOOD COUNT (AUTO) 19.6 K/uL (4.3-11.0)
--- NOTE | 2021-03-02 07:09 | NUR ---
RN NOTE PATIENT A/O X4, IN BED ON NC AT 6LPM VIA NC SATURATING 93%, NO SOB/ACUTE DISTRESS NOTED THROUGHOUT THE NIGHT, AFEBRILE, BED LOCKED AND LOWEST POSITION, S/R OF BED X2 UP, CALL HOPPER WITHIN REACH, ALL SAFETY PRECAUTIONS IN PLACED, WILL ENDORSE CONTINUITY OF CARE TO ONCOMING NURSE.
--- NOTE | 2021-03-02 07:34 | NUR ---
RN NOTE PATIENT IS IN BED PRONE. PATIENT IS ON 6L NC WITH NO SIGNS OF LABORED BREATHING. PATIENT IS AOX4. BED IS LOCKED IN THE LOWEST POSITION, 3 GUARD RAILS RAISED, CALL HOPPER WITHIN REACH, AND ALL HOSPITAL SAFETY PRECAUTIONS ARE BEING FOLLOWED. WILL CONTINUE TO MONITOR THROUGHOUT SHIFT.
[2021-03-02 08:00] VITALS: BP 137/81
[2021-03-02] MEDS: IPRATROPIUM/ALBUTEROL INHALER IH SCH ×4 (08:07→20:29)
[2021-03-02] MEDS: DEXAMETHASONE 4 MG TABLET PO SCH (08:11)
[2021-03-02] MEDS: ENSURE ENLIVE 237 ML LIQUID (VANILLA) PO SCH ×2 (08:11→17:09)
[2021-03-02] MEDS: PANTOPRAZOLE 40 MG TABLET.DR PO SCH (08:11)
[2021-03-02 08:35] LABS: BAND % (MANUAL) 2 % (0.0-5.0); EOSINOPHILS % (MANUAL) 2 % (0-4); LYMPHOCYTES % (MANUAL) 10 % (16-48); METAMYELOCYTES % 1 % (0-0); MONOCYTES % (MANUAL) 4 % (0-11.0); MYELOCYTES % 1 % (0-0); NEUTROPHILS % (MANUAL) 80 (42-76)
[2021-03-02 12:00] VITALS: BP 105/48
[2021-03-02 16:00] VITALS: BP 119/85
[2021-03-02] MEDS: RIVAROXABAN 10 MG TABLET PO SCH (16:17)
--- NOTE | 2021-03-02 18:51 | NUR ---
RN NOTE PATIENT IS IN BED PRONE. PATIENT IS ON 6L NC WITH NO SIGNS OF LABORED BREATHING. PATIENT IS AOX4. BED IS LOCKED IN THE LOWEST POSITION, 3 GUARD RAILS RAISED, CALL HOPPER WITHIN REACH, AND ALL HOSPITAL SAFETY PRECAUTIONS ARE BEING FOLLOWED. ALL DUE MEDS GIVEN AND PATIENT REMAINED STABLE THROUGHOUT SHIFT. WILL ENDORSE TO PAYROLL SERVICES ANALYST RN.
--- NOTE | 2021-03-02 19:26 | NUR ---
RN NOTES PATIENT IS IN BED PRONE. PATIENT IS ON 6L NC WITH NO SIGNS OF LABORED BREATHING. PATIENT IS AOX4. BED IS LOCKED IN THE LOWEST POSITION, 3 GUARD RAILS RAISED, CALL HOPPER WITHIN REACH, AND ALL HOSPITAL SAFETY PRECAUTIONS ARE BEING FOLLOWED. ALL NURSING NEEDS MET AT THIS TIME WILL CONTINUE TO MONITOR.
[2021-03-02 20:00] VITALS: BP 130/75
--- NOTE | 2021-03-02 23:20 | NUR ---
RN NOTES RT TRITIATED PT TO 4L PT IS SATURATION AT 94-95 % O2 SAT WILL CONTINUE TO MONITOR.
[2021-03-03] VITALS (7 sets, daily range): BP systolic 131–160; BP diastolic 72–91
[2021-03-03 06:21] LABS: BASOPHILS # (AUTO) 0.2 K/uL (0.0-0.2); BASOPHILS % (AUTO) 0.8 % (0.0-2.0); EOSINOPHILS % (AUTO) 0.6 % (0.0-6.0); HEMATOCRIT 35 % (33-45); HEMOGLOBIN 11.3 g/dL (11.5-14.8); LYMPHOCYTES % (AUTO) 13.2 % (20.0-44.0); MEAN CORPUSCULAR HGB CONC 32 g/dl (31.0-36.0); MEAN CORPUSCULAR VOLUME 87 fL (82-100); MONOCYTES # (AUTO) 1.6 K/uL (0.1-1.30); MONOCYTES % (AUTO) 7.1 % (2.0-12.0); NEUTROPHILS # (AUTO) 17.6 K/uL (1.8-8.9); NEUTROPHILS % (AUTO) 78.3 % (43.0-81.0); PLATELET COUNT (AUTO) 519 K/uL (150-450); RED BLOOD CELL COUNT(AUTO) 3.99 MIL/uL (4.0-5.2); WHITE BLOOD COUNT (AUTO) 22.4 K/uL (4.3-11.0)
--- NOTE | 2021-03-03 06:26 | NUR ---
RN NOTES PATIENT IS IN BED . PATIENT IS ON 5L NC WITH NO SIGNS OF LABORED BREATHING. PATIENT IS AOX4. BED IS LOCKED IN THE LOWEST POSITION, 3 GUARD RAILS RAISED, CALL HOPPER WITHIN REACH, AND ALL HOSPITAL SAFETY PRECAUTIONS ARE BEING FOLLOWED. ALL NURSING NEEDS MET AT THIS TIME WILL ENDORSE CARE TO DAY SHIFT NURSE.
[2021-03-03] MEDS: IPRATROPIUM/ALBUTEROL INHALER IH SCH ×6 (07:35→23:05)
[2021-03-03 08:10] LABS: C-REACTIVE PROTEIN 0.4 mg/dL (0.0-0.9)
[2021-03-03 08:14] LABS: ALBUMIN 2.5 g/dL (3.4-5.0); BILIRUBIN,TOTAL 0.3 mg/dL (0.2-1.0); CALCIUM, SERUM 8.8 mg/dL (8.5-10.1); CREATININE 0.8 mg/dL (0.6-1.3); POTASSIUM 3.8 mmol/L (3.5-5.1); TOTAL PROTEIN, SERUM 6.4 g/dL (6.4-8.2)
[2021-03-03] MEDS: PANTOPRAZOLE 40 MG TABLET.DR PO SCH (08:49)
[2021-03-03] MEDS: DEXAMETHASONE 4 MG TABLET PO SCH (08:50)
[2021-03-03] MEDS: ENSURE ENLIVE 237 ML LIQUID (VANILLA) PO SCH ×2 (09:14→17:00)
[2021-03-03 09:36] LABS: LYMPHOCYTES % (MANUAL) 14 % (16-48); METAMYELOCYTES % 1 % (0-0); MONOCYTES % (MANUAL) 4 % (0-11.0); MYELOCYTES % 4 % (0-0); NEUTROPHILS % (MANUAL) 77 (42-76)
--- NOTE | 2021-03-03 10:54 | NUR ---
RN NOTES PATIENT AWAKE ALERT X 4 PT IS IN BED RESTING . PATIENT IS ON 5L NC WITH NO SIGNS OR SYMPTOMS OF LABORED BREATHING, WHEELS ON BED LOCKED, BED ON LOW POSITION, IN THE LOWEST POSITION, 3 GUARD RAILS RAISED, CALL HOPPER WITHIN REACH, AND ALL HOSPITAL SAFETY PRECAUTIONS ARE BEING FOLLOWED. ALL NURSING NEEDS MET AT THIS TIME.
--- NOTE | 2021-03-03 15:37 | NUR ---
RN NOTES RECEIVE PATIENT AWAKE ALERT X 4 , PT WILL REST IN BED . ON 5L NC WITH NO SOB AND NO SIGNS OR SYMPTOMS OF LABORED BREATHING, WHEELS ON BED LOCKED, BED IN LOW POSITION, 2 GUARD RAILS RAISED, CALL LIGHT WITHIN REACH, ALL SAFETY MEASURES IN PLACE, WILL CONTINUE CARE AND IMPLEMENT ALL MD ORDERS AT THIS TIME UNTIL 1900.
[2021-03-03] MEDS: RIVAROXABAN 10 MG TABLET PO SCH (17:02)
--- NOTE | 2021-03-03 19:31 | NUR ---
DIGITAL PHOTOGRAPHER OPENING NOTES: RECEIVED PATIENT AWAKE IN BED, BED IN LOW PSOTION, CALL LIGHTS WITHIIN REACH, NO COMPLAIN OF PAIN AND DISCOMFORT AT THIS TIME, PATIENT ON TELE MONITORING WITH READING OF ST -118 , NO SYMPTOMS WAS OBSERVE, PATIENT IS A/OX4 AMBULATORY, AND ABLE TO MAKE NEEDS KNOWN, PATIENT KEPT CLEAN AND DRY, WILL CONTINUE TO MONITOR
[2021-03-03] MEDS: HYDROCODONE/APAP 10/325MG TABLET PO PRN (22:12)
--- NOTE | 2021-03-03 23:06 | NUR ---
unable to scan Madalyn pickensi at 1930 due to medication being in the room and no bar code available
[2021-03-04] VITALS: BP 117/69
[2021-03-04 04:00] VITALS: BP 134/79
[2021-03-04] MEDS: MAGNESIUM HYDROXIDE 30 ML UDC PO PRN (06:30)
--- NOTE | 2021-03-04 06:38 | NUR ---
RN NOTES: MOM 30ML GIVEN PATIENT COMPLAIN THAT SHE DOES NOT HAVING BM X3 DAYS
--- NOTE | 2021-03-04 06:44 | NUR ---
MULTI NEEDLE MACHINE OPERATOR CLOSING NOTES PATIENT SLEEP IN BED COMFORTABLY, BED IN LOW POSITION, CALL LIGHTS WITHIN REACH, NO COMPLAIN OF PAIN AND DISCOMFORT AT THIS TIME, PATIENT IS A/OX4 AMBULATORY WITH SUPERVISION, ON O2 INHALATION AT 5LPM TO TITRATE, NO RESPIRATORY DISTRESS WAS OBSERVED, ON TELE MONITORING WITH READING OF SR-93 ALL NEEDS MET, KEPT CLEAN AND DRY, ENDORSE TO INCOMING SHIFT.
[2021-03-04 06:52] LABS: BASOPHILS # (AUTO) 0.1 K/uL (0.0-0.2); BASOPHILS % (AUTO) 0.6 % (0.0-2.0); EOSINOPHILS % (AUTO) 1.4 % (0.0-6.0); HEMATOCRIT 38 % (33-45); HEMOGLOBIN 12.4 g/dL (11.5-14.8); LYMPHOCYTES # (AUTO) 3.9 K/uL (0.8-4.8); LYMPHOCYTES % (AUTO) 15.1 % (20.0-44.0); MEAN CORPUSCULAR HGB CONC 33 g/dl (31.0-36.0); MEAN CORPUSCULAR VOLUME 88 fL (82-100); MONOCYTES # (AUTO) 1.7 K/uL (0.1-1.30); MONOCYTES % (AUTO) 6.7 % (2.0-12.0); NEUTROPHILS # (AUTO) 19.5 K/uL (1.8-8.9); NEUTROPHILS % (AUTO) 76.2 % (43.0-81.0); PLATELET COUNT (AUTO) 607 K/uL (150-450); RED BLOOD CELL COUNT(AUTO) 4.33 MIL/uL (4.0-5.2); WHITE BLOOD COUNT (AUTO) 25.5 K/uL (4.3-11.0)
--- NOTE | 2021-03-04 07:30 | NUR ---
PT RECEIVED RESTING COMFORTABLY IN BED. NO S/S OR C/O PAIN OR DISTRESS NOTED. SIDE RAILS UP X2, CALL LIGHT LEFT WITHIN REACH. WILL CONTINUE PLAN OF CARE.
[2021-03-04 08:00] VITALS: BP 138/71
[2021-03-04] MEDS: IPRATROPIUM/ALBUTEROL INHALER IH SCH ×4 (08:11→19:38)
[2021-03-04] MEDS: ENSURE ENLIVE 237 ML LIQUID (VANILLA) PO SCH ×2 (08:23→16:31)
[2021-03-04] MEDS: PANTOPRAZOLE 40 MG TABLET.DR PO SCH (08:23)
[2021-03-04] MEDS: DEXAMETHASONE 4 MG TABLET PO SCH (08:23)
[2021-03-04 12:00] VITALS: BP 141/75
[2021-03-04] MEDS: RIVAROXABAN 10 MG TABLET PO SCH (16:30)
--- NOTE | 2021-03-04 18:26 | NUR ---
CHANGE OF SHIFT REPORT PT RESTING COMFORTABLY IN BED. NO S/S OR C/O PAIN OR DISTRESS NOTED. SIDE RAILS UP X2, CALL LIGHT LEFT WITHIN REACH. PT KEPT CLEAN, DRY, AND COMFORTABLE. NO SIGNIFICANT CHANGES SINCE PREVIOUS SHIFT. WILL GIVE REPORT TO GASTON COLON.
[2021-03-04 20:00] VITALS: BP 129/81
[2021-03-04] MEDS: HYDROCODONE/APAP 10/325MG TABLET PO PRN (20:07)
[2021-03-05 04:00] VITALS: BP 133/81
--- NOTE | 2021-03-05 06:24 | NUR ---
MS RN NOTES AWAKE & RESPONSIVE. NOT IN ANY DISTRESS. NO SOB NOTED. DENIES ANY PAIN OR DISCOMFORT AT THIS TIME. MONITORED ACCORDINGLY. CALL LIGHT WITHIN REACH. BED IN LOWEST POSITION. SR UP X 2 FOR SAFETY. WILL ENDORSE TO NEXT SHIFT.
--- NOTE | 2021-03-05 07:30 | NUR ---
WAITER/WAITRESS SECOND CLASS OPENING NOTES RECEIVED PATIENT ASLEEP IN BED, EASY TO AROUSE. ALERT AND ORIENTED X4. NO SIGNS OR SYMPTOMS OF DISTRESS NOTED. BREATHING IS EVEN AND UNLABORED. NO COMPLAINTS OF PAIN AT THIS TIME. NO IV ACCESS, MD IS AWARE. PATIENT IS ON NC 5L WITH SPO2 AT 95-98%. SAFETY MEASURES ARE IN PLACE WITH BED LOCKED AT LOW POSITION, SIDE RAILS UP X 2. WILL CONTINUE TO MONITOR THROUGHOUT SHIFT.
[2021-03-05] MEDS: IPRATROPIUM/ALBUTEROL INHALER IH SCH ×4 (07:35→20:08)
[2021-03-05] MEDS: PANTOPRAZOLE 40 MG TABLET.DR PO SCH (08:28)
[2021-03-05] MEDS: ENSURE ENLIVE 237 ML LIQUID (VANILLA) PO SCH ×2 (08:29→16:39)
[2021-03-05] MEDS: DEXAMETHASONE 4 MG TABLET PO SCH (08:36)
[2021-03-05] MEDS: MAGNESIUM HYDROXIDE 30 ML UDC PO PRN (08:50)
[2021-03-05 10:00] VITALS: BP 133/81
--- NOTE | 2021-03-05 15:00 | NUR ---
BOILER TENDERS SUPERVISOR NOTES PATIENT IS IN BED RESTING IN PRONE POSITION. NO SIGNS OR SYMPTOMS OF DISTRESS. NO COMPLAINTS OF PAIN AT THIS TIME. PATIENT IS ON 5L NC SATURATING AT 94%-97%. WILL CONTINUE TO OBSERVE FOR ANY CHANGE IN CONDITION.
[2021-03-05 16:04] LABS: ABG BASE EXCESS 0.7 mmol/L; ABG OXYGEN SATURATION 97.4 % (92.0-98.5); ABG PCO2 31.1 mmHg (35.0-45.0); ABG PH 7.492 (7.350-7.450); ABG PO2 94.2 mmHg (75.0-100.0); AaDO2 155.2 mmHg; COHb 0.3 % (0.5-1.5); MetHb 0.3 % (0.0-1.5); O2Hb 96.8 % (94.0-97.0); SITE, ABG Right Brachial; VENT MODE, BG nasal cannula
[2021-03-05] MEDS: RIVAROXABAN 10 MG TABLET PO SCH (16:48)
--- NOTE | 2021-03-05 18:40 | NUR ---
AIR QUALITY CONSULTANT CLOSING NOTES PATIENT IS RESTING IN BED, PRONE. ALERT AND ORIENTED X4. NO SIGNS OR SYMPTOMS OF DISTRESS. NO SIGNIFICANT CHANGES IN CONDITION NOTED ON SHIFT. SAFETY MEASURES REMAIN IN PLACE WITH BED LOCKED AT LOW POSITION, SIDE RAILS UP X 2. WILL ENDORSE CONTINUITY OF CARE TO ONCOMING SHIFT.
--- NOTE | 2021-03-05 19:15 | NUR ---
MS RN OPENING NOTES: RECEIVED PATIENT IN BED, AWAKE, A/O X4. NO S/S OF DISTRESS NOTED. CALL LIGHT WITHIN REACH. BED IN LOWEST AND LOCKED POSITION. HOB ELEVATED. NO COMPLAIN OF PAIN. NO BM YET. ON O2 AT 5L/MIN NASAL CANNULA.
[2021-03-05 20:28] VITALS: BP 149/69
[2021-03-05] MEDS: HYDROCODONE/APAP 10/325MG TABLET PO PRN (22:25)
[2021-03-06 00:29] VITALS: BP 145/95
[2021-03-06 06:18] LABS: BASOPHILS # (AUTO) 0.2 K/uL (0.0-0.2); BASOPHILS % (AUTO) 0.9 % (0.0-2.0); EOSINOPHILS % (AUTO) 1.3 % (0.0-6.0); HEMATOCRIT 39 % (33-45); HEMOGLOBIN 12.6 g/dL (11.5-14.8); LYMPHOCYTES # (AUTO) 3.9 K/uL (0.8-4.8); LYMPHOCYTES % (AUTO) 15.4 % (20.0-44.0); MEAN CORPUSCULAR HGB CONC 33 g/dl (31.0-36.0); MEAN CORPUSCULAR VOLUME 88 fL (82-100); MONOCYTES # (AUTO) 2.2 K/uL (0.1-1.30); MONOCYTES % (AUTO) 8.7 % (2.0-12.0); NEUTROPHILS # (AUTO) 18.6 K/uL (1.8-8.9); NEUTROPHILS % (AUTO) 73.7 % (43.0-81.0); PLATELET COUNT (AUTO) 627 K/uL (150-450); RED BLOOD CELL COUNT(AUTO) 4.41 MIL/uL (4.0-5.2); WHITE BLOOD COUNT (AUTO) 25.2 K/uL (4.3-11.0)
--- NOTE | 2021-03-06 06:49 | NUR ---
MS RN CLOSING NOTES: PATIENT IN BED, AWAKE, A/O X4. NO S/S OF DISTRESS NOTED. CALL LIGHT WITHIN REACH. BED IN LOWEST AND LOCKED POSITION. NO COMPLAIN OF PAIN.
--- NOTE | 2021-03-06 07:30 | NUR ---
RN OPENING NOTES Patient was received in bed. On 5 lpm via n/c. HOB kept elevated. No s/s of respiratory distress. No c/o pain or discomfort. No iv site noted. Will continue to monitor. Call light with in reach.
[2021-03-06] MEDS: IPRATROPIUM/ALBUTEROL INHALER IH SCH ×3 (07:50→14:34)
[2021-03-06 08:00] VITALS: BP 142/70
--- NOTE | 2021-03-06 09:00 | NUR ---
02 titrated to 4 lpm and will monitor.
[2021-03-06] MEDS: PANTOPRAZOLE 40 MG TABLET.DR PO SCH (09:03)
[2021-03-06] MEDS: DEXAMETHASONE 4 MG TABLET PO SCH (09:04)
[2021-03-06] MEDS: ENSURE ENLIVE 237 ML LIQUID (VANILLA) PO SCH ×2 (09:04→17:18)
[2021-03-06 11:26] LABS: EOSINOPHILS % (MANUAL) 3 % (0-4); LYMPHOCYTES % (MANUAL) 17 % (16-48); MONOCYTES % (MANUAL) 13 % (0-11.0); NEUTROPHILS % (MANUAL) 67 (42-76)
--- NOTE | 2021-03-06 12:00 | NUR ---
02 titrated to 3 lpm and will monitor. 02 sat 96%.
[2021-03-06] MEDS ORDERED: DEXA4TAB2 PO (14:04)
[2021-03-06 16:00] VITALS: BP 132/86
[2021-03-06] MEDS ORDERED: ATEN25TA PO (16:59)
[2021-03-06] MEDS: ATENOLOL 25 MG TABLET PO SCH ×2 (17:18→17:32)
[2021-03-06] MEDS: RIVAROXABAN 10 MG TABLET PO SCH (17:18)
[2021-03-06 17:32] VITALS: BP 132/86
--- NOTE | 2021-03-06 18:23 | NUR ---
Patient was discharged to home with daughter at apprx 1755. Patient was retested for rapid covid and tested negative. Patient left the facility on 2 lpm via n/c with 02 sat of 96%. No cough/congestion during shift. Patient noted with Tachycardia and MD Bah made aware and received orders for EKG AND TSH. Patient tested for both and MD aware of results and received orders for BP med. Patient given her first dose prior to discharge. Prescription given for steroid anD BP med. Patient threw away her clothing articles upon discharge due to fear of covid but took her cell phone and wallet and lehr attendant. Patient instructed on oxygen usage and to follow up with PCP. Patient left the facility in good stable condition.
== END 2021-03-06 20:00 | disposition home or self-care (01) | DRG 137 ==
LOC: ER 21:18 → TELE1 02-23 00:24 → MEDSG1 03-04 13:29
PROVIDERS: ADMIT Nurse Practitioner Acute Care; ATTEND Internal Medicine
PROC: XW033E5 Introduction of Remdesivir Anti-infective into Peripheral Vein, Percutaneous Approach, New Technology Group 5 (ICD-10-PCS; principal; 2021-02-23)
PROC: XW033H5 Introduction of Tocilizumab into Peripheral Vein, Percutaneous Approach, New Technology Group 5 (ICD-10-PCS; 2021-02-25)
DX: U07.1 COVID-19 (principal); J96.01 Acute respiratory failure with hypoxia; J12.82 Pneumonia due to coronavirus disease 2019; J45.909 Unspecified asthma, uncomplicated; J15.9 Unspecified bacterial pneumonia; Z79.899 Other long term (current) drug therapy; Z98.891 History of uterine scar from previous surgery; Z82.3 Family history of stroke; E87.6 Hypokalemia; T38.0X5A Adverse effect of glucocorticoids and synthetic analogues, initial encounter; Y92.9 Unspecified place or not applicable
CPT/HCPCS: 36415; 36600; 71045-TC; 71046; 80048-TC; 80053-TC; 80061-TC; 80076-TC; 82550-TC; 82728-TC; 82803-TC; 83605-TC; 83615-TC; 83735-TC; 83880; 84100-TC; 84443-TC; 84484-TC; 85025-TC; 85378-TC; 85385-TC; 85610-TC; 85730-TC; 86140-TC; 86480; 87040-TC; 87081-TC; 87899; 94664; 94760-TC; 94799-TC; A4216; G0378; J0456; J0696; J1100; J1650; J7030; J7050; J7060; J8540; U0003